=== PATIENT | female | born 1945 | race Two or more races ===

== ENCOUNTER 2020-11-03 19:07 | Inpatient (IN) | payer OTHER ==
[~2020-11-03] VITALS: Ht 162.6 cm; Wt 66.3 kg
[2020-11-03] MEDS ORDERED: ZINC SULFATE 220mg CAP or TAB PO ONE (19:30)
[2020-11-03] MEDS ORDERED: methylPREDNISolone SOD SUCC 125 MG/2 ML VL IV ONE (19:30)
[2020-11-03] MEDS ORDERED: CHOLECALCIFEROL (VITD3) 2,000 UNIT CAP/TAB PO ONE (19:30)
[2020-11-03] MEDS ORDERED: ASCORBIC ACID 500 MG TAB PO ONE (19:30)
[2020-11-03 20:00] LABS: Basophils # (auto) 0 10 ^3/uL (0-0.2); Eosinophils # (auto) 0 10 ^3/uL (0-0.8); Hematocrit 42.4 % (36.0-46.0); Monocytes # (auto) 0.7 10 ^3/uL (0-1.3); Neutrophils # (auto) 4.6 10 ^3/uL (1.6-8.6)
[2020-11-03 20:01] LABS: Basophils % (auto) 0.3 % (0.0-2.0); Eosinophils % (auto) 0.1 % (0.0-7.0); Lymphocytes # (auto) 1.1 10 ^3/uL (0.4-5.4); Lymphocytes % (auto) 16.7 % (10.0-50.0); Mean Corpuscular Hemoglobin 26.9 pg (28.0-32.0); Mean Corpuscular Hgb Conc. 33.1 g/dL (32.0-36.0); Mean Corpuscular Volume 81.3 fL (80.0-100.0); Monocytes % (auto) 10.3 % (0.0-12.0); Neutrophils % (auto) 72.6 % (37.0-80.0); Nucleated Red Blood Cells % 0.1 %; Red Blood Cells 5.22 10^6/uL (4.0-5.20); Red Cell Distribution Width 14.7 % (11.8-14.3); White Blood Cell 6.4 10^3/uL (4.4-10.8)
[2020-11-03 20:17] LABS: Albumin 2.6 g/dL (3.4-5.0); BUN/Creatinine Ratio 7.6; Calcium 8.5 mg/dL (8.5-10.1); Potassium 3.1 mmol/L (3.5-5.1)
[2020-11-03 20:19] LABS: Lactic Acid w/Reflex 2.8 mmol/L (0.4-2.0)
[2020-11-03 20:25] LABS: Bilirubin, Total 0.6 mg/dL (0.2-1.0); CRP High Sensitivity 17.4 mg/dL (< 0.3); Total Protein 8.2 g/dL (6.4-8.2)
[2020-11-03] MEDS ORDERED: ONDANSETRON HCL 4 MG/2 ML VIAL IV PRN (21:15)
[2020-11-03] MEDS ORDERED: TEMAZEPAM 15 MG CAP PO PRN (21:15)
[2020-11-03] MEDS ORDERED: ACETAMINOPHEN 500 MG TAB PO PRN (21:15)
[2020-11-03] MEDS ORDERED: cefTRIAXone 1GM/50ML D5W 50 ML IV ONE (21:15)
[2020-11-03] MEDS ORDERED: NITROGLYCERIN 0.4 MG SL TAB SL PRN (21:15)
[2020-11-03] MEDS ORDERED: MORPHINE SULFATE INJECTION 2 MG/ML SYRG IV PRN (21:15)
[2020-11-03] MEDS ORDERED: AZITHROMYCIN 500MG/ 250ML 250 ML IV ONE (22:00)
[2020-11-03] MEDS ORDERED: ATORVASTATIN 20 MG TAB PO SCH (22:00)
[2020-11-03] MEDS: ENOXAPARIN SOD 40 MG/0.4 ML SYRINGE SC SCH (22:27)
[2020-11-03] MEDS: METOPROLOL TARTRATE 25 MG TAB PO SCH (22:27)
[2020-11-04] VITALS (7 sets, daily range): BP systolic 110–137; BP diastolic 68–88
[2020-11-04] MEDS ORDERED: ATO40T PO (01:44)
[2020-11-04] MEDS ORDERED: METO25TA5 PO (01:44)
[2020-11-04 05:36] LABS: Basophils # (auto) 0 10 ^3/uL (0-0.2); Basophils % (auto) 0.1 % (0.0-2.0); Eosinophils # (auto) 0 10 ^3/uL (0-0.8); Eosinophils % (auto) 0.1 % (0.0-7.0); Hematocrit 39.3 % (36.0-46.0); Hemoglobin 13.4 g/dL (12.2-16.2); Lymphocytes # (auto) 0.6 10 ^3/uL (0.4-5.4); Lymphocytes % (auto) 14.5 % (10.0-50.0); Mean Corpuscular Hemoglobin 27.4 pg (28.0-32.0); Mean Corpuscular Hgb Conc. 34.1 g/dL (32.0-36.0); Mean Corpuscular Volume 80.3 fL (80.0-100.0); Monocytes # (auto) 0.2 10 ^3/uL (0-1.3); Monocytes % (auto) 4.5 % (0.0-12.0); Neutrophils # (auto) 3.4 10 ^3/uL (1.6-8.6); Neutrophils % (auto) 80.8 % (37.0-80.0); Nucleated Red Blood Cells % 0.1 %; Red Blood Cells 4.89 10^6/uL (4.0-5.20); Red Cell Distribution Width 14.9 % (11.8-14.3); White Blood Cell 4.2 10^3/uL (4.4-10.8)
[2020-11-04 06:53] LABS: Potassium 4.5 mmol/L (3.5-5.1)
[2020-11-04 06:57] LABS: Albumin 2.4 g/dL (3.4-5.0); BUN/Creatinine Ratio 6.9; Calcium 8.7 mg/dL (8.5-10.1)
[2020-11-04 07:00] LABS: Bilirubin, Total 0.4 mg/dL (0.2-1.0); Total Protein 7.8 g/dL (6.4-8.2)
[2020-11-04] MEDS ORDERED: cefTRIAXone 1GM/50ML D5W 50 ML IV SCH (09:00)
[2020-11-04] MEDS: DexAMETHasone SOD PHOS 10MG/1ML VIAL INJ IV SCH (09:53)
[2020-11-04] MEDS: ZINC SULFATE 220mg CAP or TAB PO SCH (09:53)
[2020-11-04] MEDS: CHOLECALCIFEROL (VITD3) 2,000 UNIT CAP/TAB PO SCH (09:54)
[2020-11-04] MEDS: PANTOPRAZOLE 40 MG TAB PO SCH (09:54)
[2020-11-04] MEDS: METOPROLOL TARTRATE 25 MG TAB PO SCH ×2 (09:54→21:46)
[2020-11-04] MEDS: ASCORBIC ACID 1,000 MG TAB PO SCH (09:54)
[2020-11-04] MEDS: ENOXAPARIN SOD 40 MG/0.4 ML SYRINGE SC SCH ×2 (09:55→21:46)
[2020-11-04] MEDS ORDERED: REMDESIVIR PER PHARMACY 0 ML IV SCH (12:30)
[2020-11-04] MEDS ORDERED: REMDESIVIR 200 MG in NS 210ml LOADING DOSE ADULT IV ONE (12:45)
[2020-11-04] MEDS ORDERED: FUROSEMIDE 20 MG/2 ML VIAL IV ONE (13:00)
[2020-11-04] MEDS: BUDESONIDE (INHALATION) 180 MCG IH IN SCH (21:01)
[2020-11-04] MEDS: ALBUTEROL SULF HFA 90MCG INH 200DOSE IN PRN (21:01)
[2020-11-04] MEDS: cefTRIAXone 1GM/50ML D5W 50 ML IV SCH (21:25)
[2020-11-04] MEDS: AZITHROMYCIN 500MG/ 250ML 250 ML IV SCH (21:45)
[2020-11-05 05:09] VITALS: BP 121/69
[2020-11-05 05:38] LABS: Basophils # (auto) 0 10 ^3/uL (0-0.2); Eosinophils # (auto) 0 10 ^3/uL (0-0.8); Mean Corpuscular Hemoglobin 26.7 pg (28.0-32.0); Monocytes % (auto) 6.8 % (0.0-12.0); Neutrophils % (auto) 84.7 % (37.0-80.0)
[2020-11-05 05:40] LABS: Basophils % (auto) 0.1 % (0.0-2.0); Hematocrit 37.3 % (36.0-46.0); Hemoglobin 12.4 g/dL (12.2-16.2); Lymphocytes % (auto) 8.4 % (10.0-50.0); Mean Corpuscular Hgb Conc. 33.3 g/dL (32.0-36.0); Mean Corpuscular Volume 80.3 fL (80.0-100.0); Monocytes # (auto) 0.8 10 ^3/uL (0-1.3); Neutrophils # (auto) 10.4 10 ^3/uL (1.6-8.6); Red Blood Cells 4.65 10^6/uL (4.0-5.20); Red Cell Distribution Width 14.7 % (11.8-14.3); White Blood Cell 12.3 10^3/uL (4.4-10.8)
[2020-11-05] MEDS: ALBUTEROL SULF HFA 90MCG INH 200DOSE IN PRN ×2 (05:51→21:07)
[2020-11-05] MEDS: BUDESONIDE (INHALATION) 180 MCG IH IN SCH ×2 (05:51→21:07)
[2020-11-05 05:57] LABS: INR 1.02 (0.9-1.15)
[2020-11-05 06:13] LABS: Albumin 2.3 g/dL (3.4-5.0); BUN/Creatinine Ratio 16.2; Bilirubin, Total 0.4 mg/dL (0.2-1.0); CRP High Sensitivity 8.3 mg/dL (< 0.3); Calcium 8.3 mg/dL (8.5-10.1); Magnesium 2.4 mg/dL (1.6-2.6); Total Protein 7.1 g/dL (6.4-8.2)
[2020-11-05 08:28] VITALS: BP 115/71
[2020-11-05] MEDS: ZINC SULFATE 220mg CAP or TAB PO SCH (10:05)
[2020-11-05] MEDS: DexAMETHasone SOD PHOS 10MG/1ML VIAL INJ IV SCH (10:05)
[2020-11-05] MEDS: FLORASTOR (S. BOULARDII) 250 MG CAP PO SCH (10:06)
[2020-11-05] MEDS: ASCORBIC ACID 1,000 MG TAB PO SCH (10:11)
[2020-11-05] MEDS: CHOLECALCIFEROL (VITD3) 2,000 UNIT CAP/TAB PO SCH (10:11)
[2020-11-05] MEDS: PANTOPRAZOLE 40 MG TAB PO SCH (10:11)
[2020-11-05] MEDS: ENOXAPARIN SOD 40 MG/0.4 ML SYRINGE SC SCH (10:11)
[2020-11-05] MEDS: METOPROLOL TARTRATE 25 MG TAB PO SCH ×2 (10:11→21:38)
[2020-11-05] MEDS: REMDESIVIR 100mg 100 MG in SODIUM CHL 0.9% 230 ML IV SCH (15:00)
[2020-11-05] MEDS ORDERED: FUROSEMIDE 20 MG/2 ML VIAL IV ONE (16:15)
[2020-11-05] MEDS ORDERED: IOHEXOL 350 MG/ML 100ML IJ ONE ×2 (16:20→18:44)
[2020-11-05 17:00] VITALS: BP 131/71
[2020-11-05] MEDS: cefTRIAXone 1GM/50ML D5W 50 ML IV SCH (21:29)
[2020-11-05] MEDS: AZITHROMYCIN 500MG/ 250ML 250 ML IV SCH (21:38)
[2020-11-05 22:00] VITALS: BP 141/79
[2020-11-05] MEDS ORDERED: ENOXAPARIN SOD 60 MG/0.6 ML SYRINGE SC SCH (22:00)
[2020-11-06 05:00] VITALS: BP 142/73
[2020-11-06 06:35] LABS: Basophils # (auto) 0 10 ^3/uL (0-0.2); Eosinophils # (auto) 0 10 ^3/uL (0-0.8); Lymphocytes # (auto) 0.9 10 ^3/uL (0.4-5.4); Lymphocytes % (auto) 7.8 % (10.0-50.0); Mean Corpuscular Volume 79.8 fL (80.0-100.0); Nucleated Red Blood Cells % 0.1 %
[2020-11-06 06:38] LABS: Basophils % (auto) 0.1 % (0.0-2.0); Hematocrit 37.9 % (36.0-46.0); Hemoglobin 12.6 g/dL (12.2-16.2); Mean Corpuscular Hemoglobin 26.4 pg (28.0-32.0); Mean Corpuscular Hgb Conc. 33.1 g/dL (32.0-36.0); Monocytes % (auto) 8.7 % (0.0-12.0); Neutrophils # (auto) 9.5 10 ^3/uL (1.6-8.6); Neutrophils % (auto) 83.4 % (37.0-80.0); Red Blood Cells 4.75 10^6/uL (4.0-5.20); Red Cell Distribution Width 14.6 % (11.8-14.3); White Blood Cell 11.4 10^3/uL (4.4-10.8)
[2020-11-06 06:44] LABS: INR 1.12 (0.9-1.15)
[2020-11-06 06:56] LABS: Potassium 3.7 mmol/L (3.5-5.1)
[2020-11-06 07:18] LABS: CRP High Sensitivity 4.69 mg/dL (< 0.3)
[2020-11-06 09:00] VITALS: BP 134/78
[2020-11-06] MEDS: ALBUTEROL SULF HFA 90MCG INH 200DOSE IN PRN ×2 (09:30→20:00)
[2020-11-06] MEDS: BUDESONIDE (INHALATION) 180 MCG IH IN SCH ×2 (09:30→19:05)
[2020-11-06] MEDS: DexAMETHasone SOD PHOS 10MG/1ML VIAL INJ IV SCH (09:51)
[2020-11-06] MEDS: ZINC SULFATE 220mg CAP or TAB PO SCH (09:52)
[2020-11-06] MEDS: METOPROLOL TARTRATE 25 MG TAB PO SCH ×2 (09:52→22:44)
[2020-11-06] MEDS: PANTOPRAZOLE 40 MG TAB PO SCH (09:52)
[2020-11-06] MEDS: FLORASTOR (S. BOULARDII) 250 MG CAP PO SCH (09:52)
[2020-11-06] MEDS: FUROSEMIDE 20 MG/2 ML VIAL IV SCH (09:52)
[2020-11-06] MEDS: ASCORBIC ACID 1,000 MG TAB PO SCH (09:52)
[2020-11-06] MEDS: ENOXAPARIN SOD 60 MG/0.6 ML SYRINGE SC SCH ×2 (09:53→22:44)
[2020-11-06] MEDS: CHOLECALCIFEROL (VITD3) 2,000 UNIT CAP/TAB PO SCH (09:53)
[2020-11-06 13:00] VITALS: BP 111/68
[2020-11-06] MEDS: POTASSIUM CHL 10 Meq TABLET PO SCH (15:34)
[2020-11-06] MEDS: REMDESIVIR 100mg 100 MG in SODIUM CHL 0.9% 230 ML IV SCH (15:35)
[2020-11-06 16:36] VITALS: BP 114/71
[2020-11-06] MEDS: cefTRIAXone 1GM/50ML D5W 50 ML IV SCH (20:24)
[2020-11-06 22:00] VITALS: BP 134/79
[2020-11-06] MEDS: AZITHROMYCIN 500MG/ 250ML 250 ML IV SCH (22:42)
[2020-11-07 05:00] VITALS: BP 142/77
[2020-11-07 05:57] LABS: Albumin 2.4 g/dL (3.4-5.0); Calcium 8.4 mg/dL (8.5-10.1); Potassium 3.7 mmol/L (3.5-5.1)
[2020-11-07 06:00] LABS: Basophils # (auto) 0 10 ^3/uL (0-0.2); Eosinophils # (auto) 0 10 ^3/uL (0-0.8); Lymphocytes # (auto) 0.9 10 ^3/uL (0.4-5.4); Nucleated Red Blood Cells % 0.1 %; Red Cell Distribution Width 14.4 % (11.8-14.3)
[2020-11-07 06:01] LABS: BUN/Creatinine Ratio 20.6; Bilirubin, Total 0.5 mg/dL (0.2-1.0); Total Protein 7.1 g/dL (6.4-8.2)
[2020-11-07 06:03] LABS: Hematocrit 38.8 % (36.0-46.0); Hemoglobin 13.1 g/dL (12.2-16.2); Lymphocytes % (auto) 9.8 % (10.0-50.0); Mean Corpuscular Hgb Conc. 33.8 g/dL (32.0-36.0); Mean Corpuscular Volume 79.7 fL (80.0-100.0); Monocytes # (auto) 0.7 10 ^3/uL (0-1.3); Neutrophils # (auto) 7.7 10 ^3/uL (1.6-8.6); Neutrophils % (auto) 82.2 % (37.0-80.0); Red Blood Cells 4.87 10^6/uL (4.0-5.20); White Blood Cell 9.3 10^3/uL (4.4-10.8)
[2020-11-07] MEDS: ALBUTEROL SULF HFA 90MCG INH 200DOSE IN PRN (06:41)
[2020-11-07] MEDS: BUDESONIDE (INHALATION) 180 MCG IH IN SCH ×2 (06:41→21:35)
[2020-11-07 09:00] VITALS: BP 114/69
[2020-11-07] MEDS: ZINC SULFATE 220mg CAP or TAB PO SCH (10:03)
[2020-11-07] MEDS: FUROSEMIDE 20 MG/2 ML VIAL IV SCH (10:03)
[2020-11-07] MEDS: DexAMETHasone SOD PHOS 10MG/1ML VIAL INJ IV SCH (10:03)
[2020-11-07] MEDS: PANTOPRAZOLE 40 MG TAB PO SCH (10:04)
[2020-11-07] MEDS: FLORASTOR (S. BOULARDII) 250 MG CAP PO SCH (10:04)
[2020-11-07] MEDS: POTASSIUM CHL 10 Meq TABLET PO SCH (10:04)
[2020-11-07] MEDS: METOPROLOL TARTRATE 25 MG TAB PO SCH ×2 (10:04→21:40)
[2020-11-07] MEDS: ENOXAPARIN SOD 60 MG/0.6 ML SYRINGE SC SCH ×2 (10:05→21:38)
[2020-11-07] MEDS: CHOLECALCIFEROL (VITD3) 2,000 UNIT CAP/TAB PO SCH (10:05)
[2020-11-07] MEDS: ASCORBIC ACID 1,000 MG TAB PO SCH (10:05)
[2020-11-07 13:00] VITALS: BP 107/73
[2020-11-07] MEDS: REMDESIVIR 100mg 100 MG in SODIUM CHL 0.9% 230 ML IV SCH (15:31)
[2020-11-07 16:39] VITALS: BP 116/77
[2020-11-07] MEDS: cefTRIAXone 1GM/50ML D5W 50 ML IV SCH (20:22)
[2020-11-07] MEDS: AZITHROMYCIN 500MG/ 250ML 250 ML IV SCH (21:38)
[2020-11-07 22:00] VITALS: BP 130/84
[2020-11-07] MEDS ORDERED: TOCILIZUMAB 400 MG in SODIUM CHL 0.9% 80 ML IV SCH (22:00)
[2020-11-08 05:00] VITALS: BP 143/87
[2020-11-08] MEDS: ALBUTEROL SULF HFA 90MCG INH 200DOSE IN PRN ×2 (06:31→22:06)
[2020-11-08] MEDS: BUDESONIDE (INHALATION) 180 MCG IH IN SCH ×2 (06:31→22:06)
[2020-11-08 06:35] LABS: Basophils # (auto) 0 10 ^3/uL (0-0.2); Basophils % (auto) 0.1 % (0.0-2.0); Eosinophils # (auto) 0 10 ^3/uL (0-0.8); Eosinophils % (auto) 0.1 % (0.0-7.0); Monocytes # (auto) 0.8 10 ^3/uL (0-1.3)
[2020-11-08 06:40] LABS: Hematocrit 40.8 % (36.0-46.0); Hemoglobin 13.7 g/dL (12.2-16.2); Lymphocytes % (auto) 10.5 % (10.0-50.0); Mean Corpuscular Hemoglobin 26.9 pg (28.0-32.0); Mean Corpuscular Hgb Conc. 33.7 g/dL (32.0-36.0); Mean Corpuscular Volume 79.9 fL (80.0-100.0); Monocytes % (auto) 8.6 % (0.0-12.0); Neutrophils # (auto) 7.8 10 ^3/uL (1.6-8.6); Neutrophils % (auto) 80.7 % (37.0-80.0); Red Cell Distribution Width 14.5 % (11.8-14.3); White Blood Cell 9.7 10^3/uL (4.4-10.8)
[2020-11-08 06:50] LABS: Albumin 2.4 g/dL (3.4-5.0); Calcium 8.5 mg/dL (8.5-10.1); Magnesium 2.9 mg/dL (1.6-2.6); Potassium 3.7 mmol/L (3.5-5.1)
[2020-11-08 06:58] LABS: BUN/Creatinine Ratio 23.1; Bilirubin, Total 0.6 mg/dL (0.2-1.0); CRP High Sensitivity 3.48 mg/dL (< 0.3); Total Protein 7.1 g/dL (6.4-8.2)
[2020-11-08 08:41] LABS: INR 1.14 (0.9-1.15)
[2020-11-08 09:00] VITALS: BP 112/73
[2020-11-08] MEDS: FUROSEMIDE 20 MG/2 ML VIAL IV SCH (09:59)
[2020-11-08] MEDS: DexAMETHasone SOD PHOS 10MG/1ML VIAL INJ IV SCH (09:59)
[2020-11-08] MEDS: ZINC SULFATE 220mg CAP or TAB PO SCH (10:00)
[2020-11-08] MEDS: FLORASTOR (S. BOULARDII) 250 MG CAP PO SCH (10:00)
[2020-11-08] MEDS: POTASSIUM CHL 10 Meq TABLET PO SCH (10:01)
[2020-11-08] MEDS: METOPROLOL TARTRATE 25 MG TAB PO SCH ×2 (10:01→23:02)
[2020-11-08] MEDS: ENOXAPARIN SOD 60 MG/0.6 ML SYRINGE SC SCH ×2 (10:02→22:09)
[2020-11-08] MEDS: CHOLECALCIFEROL (VITD3) 2,000 UNIT CAP/TAB PO SCH (10:02)
[2020-11-08] MEDS: PANTOPRAZOLE 40 MG TAB PO SCH (10:02)
[2020-11-08] MEDS: ASCORBIC ACID 1,000 MG TAB PO SCH (10:02)
[2020-11-08 13:00] VITALS: BP 110/70
[2020-11-08] MEDS: REMDESIVIR 100mg 100 MG in SODIUM CHL 0.9% 230 ML IV SCH (15:25)
[2020-11-08 16:38] VITALS: BP 118/72
[2020-11-08] MEDS: cefTRIAXone 1GM/50ML D5W 50 ML IV SCH (21:08)
[2020-11-08 22:00] VITALS: BP 118/70
[2020-11-08] MEDS: AZITHROMYCIN 500MG/ 250ML 250 ML IV SCH (22:09)
[2020-11-09 05:00] VITALS: BP 103/64
[2020-11-09] MEDS: BUDESONIDE (INHALATION) 180 MCG IH IN SCH ×2 (06:11→20:55)
[2020-11-09] MEDS: ALBUTEROL SULF HFA 90MCG INH 200DOSE IN PRN ×2 (06:12→20:55)
[2020-11-09 08:45] VITALS: BP 101/61
[2020-11-09] MEDS: FUROSEMIDE 20 MG/2 ML VIAL IV SCH (09:19)
[2020-11-09] MEDS: ENOXAPARIN SOD 60 MG/0.6 ML SYRINGE SC SCH ×2 (09:19→21:33)
[2020-11-09] MEDS: DexAMETHasone SOD PHOS 10MG/1ML VIAL INJ IV SCH (09:19)
[2020-11-09] MEDS: CHOLECALCIFEROL (VITD3) 2,000 UNIT CAP/TAB PO SCH (09:19)
[2020-11-09] MEDS: ZINC SULFATE 220mg CAP or TAB PO SCH (09:20)
[2020-11-09] MEDS: ASCORBIC ACID 1,000 MG TAB PO SCH (09:20)
[2020-11-09] MEDS: POTASSIUM CHL 10 Meq TABLET PO SCH (09:20)
[2020-11-09] MEDS: FLORASTOR (S. BOULARDII) 250 MG CAP PO SCH (09:20)
[2020-11-09] MEDS: PANTOPRAZOLE 40 MG TAB PO SCH (09:20)
[2020-11-09] MEDS: METOPROLOL TARTRATE 25 MG TAB PO SCH ×2 (09:20→21:33)
[2020-11-09 12:43] VITALS: BP 116/71
[2020-11-09 17:00] VITALS: BP 108/56
[2020-11-09] MEDS: cefTRIAXone 1GM/50ML D5W 50 ML IV SCH (20:32)
[2020-11-09 21:32] VITALS: BP 122/74
[2020-11-10 05:00] VITALS: BP 138/69
[2020-11-10] MEDS: BUDESONIDE (INHALATION) 180 MCG IH IN SCH ×2 (06:24→20:10)
[2020-11-10 09:00] VITALS: BP 108/70
[2020-11-10] MEDS: DexAMETHasone SOD PHOS 10MG/1ML VIAL INJ IV SCH (09:29)
[2020-11-10] MEDS: ASCORBIC ACID 1,000 MG TAB PO SCH (09:30)
[2020-11-10] MEDS: PANTOPRAZOLE 40 MG TAB PO SCH (09:30)
[2020-11-10] MEDS: ZINC SULFATE 220mg CAP or TAB PO SCH (09:30)
[2020-11-10] MEDS: METOPROLOL TARTRATE 25 MG TAB PO SCH ×2 (09:30→21:07)
[2020-11-10] MEDS: POTASSIUM CHL 10 Meq TABLET PO SCH (09:30)
[2020-11-10] MEDS: CHOLECALCIFEROL (VITD3) 2,000 UNIT CAP/TAB PO SCH (09:30)
[2020-11-10] MEDS: ENOXAPARIN SOD 60 MG/0.6 ML SYRINGE SC SCH (09:30)
[2020-11-10] MEDS: FUROSEMIDE 20 MG/2 ML VIAL IV SCH (09:30)
[2020-11-10] MEDS: FLORASTOR (S. BOULARDII) 250 MG CAP PO SCH (09:30)
[2020-11-10 13:00] VITALS: BP 114/72
[2020-11-10 17:00] VITALS: BP 121/72
[2020-11-10] MEDS: ALBUTEROL SULF HFA 90MCG INH 200DOSE IN PRN (20:10)
[2020-11-10] MEDS: APIXABAN 5 MG TAB PO SCH (21:06)
[2020-11-10] MEDS: cefTRIAXone 1GM/50ML D5W 50 ML IV SCH (21:06)
[2020-11-10 22:00] VITALS: BP 120/72
[2020-11-11] VITALS (7 sets, daily range): BP systolic 116–139; BP diastolic 67–88
[2020-11-11 05:40] LABS: Basophils # (auto) 0 10 ^3/uL (0-0.2); Basophils % (auto) 0.1 % (0.0-2.0); Eosinophils # (auto) 0 10 ^3/uL (0-0.8); Eosinophils % (auto) 0.2 % (0.0-7.0); Hematocrit 38.8 % (36.0-46.0); Hemoglobin 13.2 g/dL (12.2-16.2); Lymphocytes # (auto) 1.2 10 ^3/uL (0.4-5.4); Lymphocytes % (auto) 12.6 % (10.0-50.0); Mean Corpuscular Hemoglobin 27.1 pg (28.0-32.0); Mean Corpuscular Volume 79.7 fL (80.0-100.0); Monocytes # (auto) 1.1 10 ^3/uL (0-1.3); Monocytes % (auto) 11.2 % (0.0-12.0); Neutrophils # (auto) 7.1 10 ^3/uL (1.6-8.6); Neutrophils % (auto) 75.9 % (37.0-80.0); Red Blood Cells 4.87 10^6/uL (4.0-5.20); Red Cell Distribution Width 14.5 % (11.8-14.3); White Blood Cell 9.4 10^3/uL (4.4-10.8)
[2020-11-11 05:56] LABS: Potassium 4.1 mmol/L (3.5-5.1)
[2020-11-11 06:07] LABS: BUN/Creatinine Ratio 19.4; CRP High Sensitivity 5.6 mg/dL (< 0.3); Calcium 8.7 mg/dL (8.5-10.1); Magnesium 2.6 mg/dL (1.6-2.6)
[2020-11-11] MEDS: BUDESONIDE (INHALATION) 180 MCG IH IN SCH ×2 (09:01→21:35)
[2020-11-11] MEDS: ALBUTEROL SULF HFA 90MCG INH 200DOSE IN PRN ×2 (09:01→21:35)
[2020-11-11] MEDS: DexAMETHasone SOD PHOS 10MG/1ML VIAL INJ IV SCH (09:39)
[2020-11-11] MEDS: ZINC SULFATE 220mg CAP or TAB PO SCH (09:41)
[2020-11-11] MEDS: FLORASTOR (S. BOULARDII) 250 MG CAP PO SCH (09:41)
[2020-11-11] MEDS: POTASSIUM CHL 10 Meq TABLET PO SCH (09:41)
[2020-11-11] MEDS: ASCORBIC ACID 1,000 MG TAB PO SCH (09:42)
[2020-11-11] MEDS: CHOLECALCIFEROL (VITD3) 2,000 UNIT CAP/TAB PO SCH (09:42)
[2020-11-11] MEDS: PANTOPRAZOLE 40 MG TAB PO SCH (09:43)
[2020-11-11] MEDS: METOPROLOL TARTRATE 25 MG TAB PO SCH ×2 (09:43→21:36)
[2020-11-11] MEDS ORDERED: ZINC220T6 PO (10:13)
[2020-11-11] MEDS ORDERED: ALBUAER3 IN (10:13)
[2020-11-11] MEDS ORDERED: BUDE2SUS3 IN (10:13)
[2020-11-11] MEDS ORDERED: PANT40TA2 PO (10:21)
[2020-11-11] MEDS ORDERED: ASCO10003 PO (10:21)
[2020-11-11] MEDS ORDERED: DOXY-286 PO (10:21)
[2020-11-11] MEDS ORDERED: APIX5TAB4 PO (10:21)
[2020-11-11] MEDS ORDERED: DEX4T PO (10:21)
[2020-11-11] MEDS ORDERED: CHOL20007 PO (10:21)
[2020-11-11] MEDS: APIXABAN 5 MG TAB PO SCH ×2 (11:35→21:35)
[2020-11-11] MEDS: FUROSEMIDE 20 MG/2 ML VIAL IV SCH (11:35)
[2020-11-12 05:00] VITALS: BP 134/75
[2020-11-12] MEDS: BUDESONIDE (INHALATION) 180 MCG IH IN SCH ×2 (06:43→20:30)
[2020-11-12] MEDS: ALBUTEROL SULF HFA 90MCG INH 200DOSE IN PRN ×2 (06:43→22:47)
[2020-11-12 09:00] VITALS: BP 118/79
[2020-11-12] MEDS: FUROSEMIDE 20 MG/2 ML VIAL IV SCH (09:35)
[2020-11-12] MEDS: ZINC SULFATE 220mg CAP or TAB PO SCH (09:35)
[2020-11-12] MEDS: DexAMETHasone SOD PHOS 10MG/1ML VIAL INJ IV SCH (09:35)
[2020-11-12] MEDS: POTASSIUM CHL 10 Meq TABLET PO SCH (09:36)
[2020-11-12] MEDS: METOPROLOL TARTRATE 25 MG TAB PO SCH ×2 (09:36→22:06)
[2020-11-12] MEDS: APIXABAN 5 MG TAB PO SCH ×2 (09:36→22:06)
[2020-11-12] MEDS: FLORASTOR (S. BOULARDII) 250 MG CAP PO SCH (09:36)
[2020-11-12] MEDS: CHOLECALCIFEROL (VITD3) 2,000 UNIT CAP/TAB PO SCH (09:37)
[2020-11-12] MEDS: PANTOPRAZOLE 40 MG TAB PO SCH (09:37)
[2020-11-12] MEDS: ASCORBIC ACID 1,000 MG TAB PO SCH (09:37)
[2020-11-12 13:00] VITALS: BP 106/61
[2020-11-12 16:56] VITALS: BP 115/64
[2020-11-12 22:00] VITALS: BP 131/77
[2020-11-17] MEDS ORDERED: APIXABAN 5 MG TAB PO SCH (22:00)
== END 2020-11-12 23:00 | disposition home or self-care (01) | DRG 871 ==
LOC: EDBD 19:07 → ER 19:14 → TELE 21:10 → TELE-EAST 23:40
PROVIDERS: ADMIT Nurse Practitioner; ATTEND Internal Medicine
PROC: XW033E5 Introduction of Remdesivir Anti-infective into Peripheral Vein, Percutaneous Approach, New Technology Group 5 (ICD-10-PCS; principal; 2020-11-04)
DX: A41.89 Other specified sepsis (principal); U07.1 COVID-19; J12.82 Pneumonia due to coronavirus disease 2019; I26.99 Other pulmonary embolism without acute cor pulmonale; J96.01 Acute respiratory failure with hypoxia; I82.431 Acute embolism and thrombosis of right popliteal vein; J98.11 Atelectasis; I10 Essential (primary) hypertension; E78.5 Hyperlipidemia, unspecified; D89.839 Cytokine release syndrome, grade unspecified; Z90.49 Acquired absence of other specified parts of digestive tract; Z88.8 Allergy status to other drugs, medicaments and biological substances
CPT/HCPCS: 36415; 36600; 71045; 71275; 76705; 80048; 80053; 80061; 82306; 82728; 82805; 83605; 83615; 83735; 83880; 84132; 84484; 85025; 85379; 85610; 86141; 87040; 87426; 93005; 93970; 94640; 96365; 96368; 96375; 97110; 97116; 97530; 99291; G0378; J0696; J1100